=== PATIENT | male | born 1980 | race Caucasian/White ===

== ENCOUNTER → 2018-11-21 | Outpatient (CLI) | payer BC ==
[2015-10-21 16:18] VITALS: BP 147/100
[2018-11-21 16:01] LABS: EOS # 0.2 (0.04-0.40); EOS % 2.3 % (0.0-4.0); HEMATOCRIT 43.8 % (42.0-52.0); LYMPH# 2.8 (1.50-4.00); MEAN CELL VOLUME 84 fl (78-100); MEAN CORPUSCULAR HEMOGLOBIN 29 pg (27-31); MEAN CORPUSCULAR HGB CONC 34 g/dL (33-37); MEAN PLATELET VOLUME 10.1 fl (7.4-10.4); MONO # 0.7 (0.20-0.80); PLATELET COUNT 278 K/mm3 (130-400); RED BLOOD COUNT 5.22 M/mm3 (4.20-5.60); RED CELL DISTRIBUTION WIDTH 12.9 % (11.5-14.5); WHITE BLOOD COUNT 7.7 K/mm3 (4.8-10.8)
[2018-11-21 16:12] LABS: ALBUMIN 4.6 g/dL (3.5-5.0); POTASSIUM 3.5 mmol/L (3.5-5.1)
[2018-11-21 16:13] LABS: CALCIUM 9.7 mg/dL (8.3-10.5)
[2018-11-21 16:14] LABS: TOTAL PROTEIN 7.7 g/dL (6.4-8.3)
[2018-11-21 16:16] LABS: TOTAL BILIRUBIN 0.8 mg/dL (0.2-1.2)
== END ==
LOC: LAB 15:50
PROVIDERS: Family Medicine
DX: F41.9 Anxiety disorder, unspecified (principal); E78.5 Hyperlipidemia, unspecified

== ENCOUNTER → 2020-05-08 | Outpatient (CLI) | payer BC ==
[2015-10-21 16:18] VITALS: BP 147/100
[2020-05-08 11:50] LABS: BASO # 0.1 (0.02-0.10); EOS # 0.3 (0.04-0.40); EOS % 3.5 % (0.0-4.0); HEMATOCRIT 45.1 % (42.0-52.0); HEMOGLOBIN 15.1 g/dL (13.5-18.0); LYMPH# 2.9 (1.50-4.00); MEAN CELL VOLUME 88 fl (78-100); MEAN CORPUSCULAR HEMOGLOBIN 30 pg (27-31); MEAN CORPUSCULAR HGB CONC 34 g/dL (33-37); MEAN PLATELET VOLUME 10.5 fl (7.4-10.4); MONO # 0.8 (0.20-0.80); NEU # 3.1 (1.40-6.50); PLATELET COUNT 299 K/mm3 (130-400); RED BLOOD COUNT 5.12 M/mm3 (4.20-5.60); RED CELL DISTRIBUTION WIDTH 13.2 % (11.5-14.5); WHITE BLOOD COUNT 7.1 K/mm3 (4.8-10.8)
[2020-05-08 11:58] LABS: ALBUMIN 4.8 g/dL (3.5-5.0); POTASSIUM 4.8 mmol/L (3.5-5.1)
[2020-05-08 11:59] LABS: CALCIUM 9.4 mg/dL (8.3-10.5)
[2020-05-08 12:00] LABS: TOTAL PROTEIN 7.8 g/dL (6.4-8.3)
[2020-05-08 12:02] LABS: TOTAL BILIRUBIN 0.6 mg/dL (0.2-1.2); URINE APPEARANCE CLEAR; URINE BILIRUBIN NEGATIVE (NEGATIVE); URINE BLOOD TRACE (NEGATIVE); URINE COLOR YELLOW; URINE GLUCOSE NEGATIVE (NEGATIVE); URINE KETONE NEGATIVE (NEGATIVE); URINE LEUKOCYTE ESTERASE NEGATIVE (NEGATIVE); URINE MUCUS PRESENT (NOT PRESENT); URINE NITRATE NEGATIVE (NEGATIVE); URINE PROTEIN(semi-quant) NEGATIVE (NEGATIVE); URINE UROBILINOGEN NORMAL (NORMAL)
== END ==
LOC: LAB 11:33
PROVIDERS: Family Medicine
DX: Z00.00 Encounter for general adult medical examination without abnormal findings (principal); E78.5 Hyperlipidemia, unspecified; R31.29 Other microscopic hematuria

== ENCOUNTER → 2020-05-28 | Outpatient (CLI) | payer BC ==
[2015-10-21 16:18] VITALS: BP 147/100
== END ==
LOC: LAB 07:23
DX: U07.1 COVID-19 (principal)

== ENCOUNTER → 2020-07-02 | Day surgery (SDC) | payer BC ==
[2015-10-21 16:18] VITALS: BP 147/100
== END | disposition home or self-care (01) ==
LOC: MSO 07:29
DX: K64.1 Second degree hemorrhoids (principal); R19.5 Other fecal abnormalities; R19.7 Diarrhea, unspecified; I10 Essential (primary) hypertension; F41.9 Anxiety disorder, unspecified; Z86.16 Personal history of COVID-19; Z79.899 Other long term (current) drug therapy
CPT/HCPCS: 00811; J2704; J7120

== ENCOUNTER → 2021-02-23 | Outpatient (CLI) | payer BC ==
[2021-02-23 16:32] LABS: BASO # 0.03 (0.02-0.10); EOS # 0.21 (0.04-0.40); HEMATOCRIT 46.4 % (42.0-52.0); HEMOGLOBIN 15.8 g/dL (13.5-18.0); LYMPH# 2.19 (1.50-4.00); MEAN CELL VOLUME 87 fl (78-100); MEAN CORPUSCULAR HEMOGLOBIN 30 pg (27-31); MEAN CORPUSCULAR HGB CONC 34 g/dL (33-37); MEAN PLATELET VOLUME 10.3 fl (7.4-10.4); MONO # 0.84 (0.20-0.80); NEU # 3.61 (1.40-6.50); PLATELET COUNT 270 K/mm3 (130-400); RED BLOOD COUNT 5.31 M/mm3 (4.20-5.60); RED CELL DISTRIBUTION WIDTH 12.3 % (11.5-14.5); WHITE BLOOD COUNT 6.9 K/mm3 (4.8-10.8)
[2021-02-23 16:41] LABS: ALBUMIN 4.4 g/dL (3.5-5.0); POTASSIUM 4.3 mmol/L (3.5-5.1)
[2021-02-23 16:42] LABS: CALCIUM 9.8 mg/dL (8.3-10.5)
[2021-02-23 16:44] LABS: TOTAL PROTEIN 7.7 g/dL (6.4-8.3)
[2021-02-23 16:45] LABS: TOTAL BILIRUBIN 0.7 mg/dL (0.2-1.2)
== END ==
LOC: LAB 16:09
PROVIDERS: Family Medicine
DX: R53.83 Other fatigue (principal)

== ENCOUNTER → 2022-06-28 | Outpatient (CLI) | payer BC ==
[2022-06-28 16:34] LABS: BASO # 0.03 K/mm3 (0.02-0.10); EOS # 0.28 K/mm3 (0.04-0.40); EOS % 4.3 % (0.0-4.0); HEMATOCRIT 42.6 % (42.0-52.0); HEMOGLOBIN 14.5 g/dL (13.5-18.0); LYMPH# 2.16 K/mm3 (1.50-4.00); MEAN CELL VOLUME 89 fl (78-100); MEAN CORPUSCULAR HEMOGLOBIN 30 pg (27-31); MEAN CORPUSCULAR HGB CONC 34 g/dL (33-37); MONO # 0.68 K/mm3 (0.20-0.80); NEU # 3.34 K/mm3 (1.40-6.50); PLATELET COUNT 282 K/mm3 (130-400); RED BLOOD COUNT 4.78 M/mm3 (4.20-5.60); RED CELL DISTRIBUTION WIDTH 12.3 % (11.5-14.5); WHITE BLOOD COUNT 6.5 K/mm3 (4.8-10.8)
[2022-06-28 16:53] LABS: POTASSIUM 3.9 mmol/L (3.5-5.1)
[2022-06-28 16:54] LABS: ALBUMIN 4.4 g/dL (3.5-5.0)
[2022-06-28 16:55] LABS: CALCIUM 9.5 mg/dL (8.3-10.5)
[2022-06-28 16:56] LABS: TOTAL PROTEIN 7.5 g/dL (6.4-8.3)
[2022-06-28 16:58] LABS: TOTAL BILIRUBIN 0.5 mg/dL (0.2-1.2)
== END ==
LOC: LAB 16:17
PROVIDERS: Family Medicine
DX: Z00.00 Encounter for general adult medical examination without abnormal findings (principal); E78.5 Hyperlipidemia, unspecified; B37.2 Candidiasis of skin and nail; F41.9 Anxiety disorder, unspecified; F41.0 Panic disorder [episodic paroxysmal anxiety]; Z72.0 Tobacco use